=== PATIENT | female | born 1970 | race Caucasian/White ===

== ENCOUNTER 2024-07-10 14:10 | Emergency (ER) | payer OTHER, SELFPAY ==
[2024-07-10] VITALS (7 sets, daily range): BP systolic 140–165; BP diastolic 82–95; PULSE 77–91; RESP 16–21; TEMP 36.7; O2SAT 95–99; BMI 23.5
--- NOTE | 2024-07-10 14:10 | ECG_ITS ---
APPROVED REPORT Exam: Resting ECG HR:98 bpm ECG Measurements Heart Rate 98 AXES SC 171 P 59 QRSd 85 QRS 32 QT 376 T 41 QTc 431 Conclusion SINUS RHYTHM NONSPECIFIC T-WAVE ABNORMALITY BORDERLINE ECG Electronically signed by : NESHA MARSH, 07/13/2024 13:20:23
[2024-07-10 18:09] LABS: Basophils % 0.5 % (0.1-2.0); Eosinophils # 0.1 Kmm3 (0.0-0.4); Eosinophils % 0.9 % (0.1-12.0); Immature Granulocytes # 0.01 10^3uL; Immature Granulocytes % 0.2 %; Lymphocytes # 2.7 K/mm3 (0.7-4.5); Lymphocytes % 48.9 % (10-50); Mean Corpuscular HGB Conc 34.6 g/dL (31.8-35.4); Mean Corpuscular Hemoglobin 30.5 pg (27.0-31.2); Mean Corpuscular Volume 88.2 fl (81-99); Mean Platelet Volume 11.3 fl (7.4-10.4); Monocytes # 0.3 K/mm3 (0.1-1.0); Monocytes % 4.8 % (1.7-9.3); Neutrophils # 2.5 K/mm3 (1.8-7.8); Neutrophils % 44.7 % (37.0-80.0); Nucleated Red Blood Cells # 0 10^3/uL; Nucleated Red Blood Cells % 0 %; Platelet Count 164 K/mm3 (142-424); Red Blood Count 6.55 M/mm3 (4.20-5.40); Red Cell Distribution Width 12.9 % (11.5-17.5); Red Cell Distribution Width-SD 40.8 fL; White Blood Count 5.6 K/mm3 (4.8-10.8)
--- NOTE | 2024-07-10 18:09 | ED_ITS ---
Discharge Plan Disposition Patient Disposition: Home, Self-Care Referrals Follow up/Referrals: Provider,Referral, [Primary Care Provider, Medical] - See instructions Clinical Impressions Clinical Impression: Nausea Instructions Patient Instructions: DI for Diarrhea and Traveler's Diarrhea -- Adult, DI for Diarrhea and Traveler's Diarrhea -- Child, DI for Nausea -- Adult, DI for Nausea -- Child Print Language Print Language: Swedish Discharge ED Provider: Fer Calvillo General Adult HPI <OPHELIA Guajardo - Last Filed: 07/10/24 22:26> General Chief complaint: Nausea/Vomiting/Diarrhea Stated complaint: nausea/diarrhea Time Seen by Provider: 07/10/24 14:45 Mode of Arrival: EMS Source of Information: Patient Description of Symptoms (Recalled from ER Triage Doc. by RN): patient states she was riding in the car today and became extremly nauseated. she reports was at 2 days ago for stroke liek symptoms right facial droop the mri was negative, she reports she has still been having intermittemnt headaches and is having a hard time getting words out History of Present Illness HPI narrative: Patient presents for evaluation of nausea and dizziness. Patient reports that she was riding in a car and began feeling dizzy and nauseated. She feels generally unwell. Complicating factor is patient woke up 4 days ago with right lower facial droop. That was preceded by a day long headache. Patient does not routinely get headaches. She ultimately went to the [facility] where she had a full stroke workup that was essentially negative and was discharged home with outpatient follow-up with neurology. That has not occurred at this point yet. Patient denies any change in perception no visual disturbances no focal neurologic deficits. She was the passenger in a car driven by her son. Currently she denies chest pain shortness of breath fever chills hemoptysis hematochezia melena vomiting or diarrhea. Related Data Allergies Allergy/AdvReac Type Severity Reaction Status Date / Time No Known Allergies Allergy Verified 07/10/24 14:27 PFSH <OPHELIA Guajardo - Last Filed: 07/10/24 22:26> PFS Disclaimer: The information contained in this section may have been updated after the patient was seen, as this information can be updated by other users. Social History (Updated 05/28/25 @ 22:26 by OPHELIA Guajardo) Smoking Status: Never smoker alcohol intake: never current occupational status: unemployed Travel in the last 8 weeks?: None Have you lived/traveled outside US in past 30 days?: No Contact w/someone who lives/traveled outside US past 30 days?: No Exposure to someone with infectious disease in past 14 days?: No Do you have a fever (greater than 100.4 F or 38 C)?: No Have you tested positive for COVID-19?: No Exposed to someone with COVID-19 in past 14 days?: No Do you have a sore throat?: No Do you have a cough?: No Do you have any weakness?: No Do you have any diarrhea?: No Are you experiencing any unusual bleeding?: No Do you have any muscle aches/pain?: No Do you have any abdominal pain?: No Are you experiencing loss of taste or smell?: No <OPHELIA Guajardo - Last Filed: 07/10/24 22:26> ROS Obtained: Yes Systems reviewed as appropriate & no additional complaints except as documented Physical Exam <OPHELIA Guajardo - Last Filed: 07/10/24 22:26> General General appearance: alert and in no apparent distress Respiratory Respiratory exam: Present normal lung sounds bilaterally Cardiovascular Cardiovascular exam: Present regular rate Neurological Exam Neurological exam: Present alert and oriented X3 Medical Decision Making <OPHELIA Guajardo - Last Filed: 07/10/24 22:26> Medical Records Medical records reviewed: Yes I reviewed the patient's medical records. Screening: Per USPSTF and CDC recommendations, given the prevalence of disease in our region, it is our hospital?s policy to screen for HIV and viral Hepatitis for all patients aged 18 and over and those with ongoing risk factors. Akbar Inquiry Pt receiving controlled substance: No Vital Signs: 07/10/24 14:25 07/10/24 14:45 07/10/24 15:00 Temperature 98.1 F Temperature Source Oral Pulse Rate 90 84 Pulse Rate [Right Radial] 89 Respiratory Rate 18 16 Blood Pressure 153/86 H 140/82 Blood Pressure [Right Arm] 159/87 H Blood Pressure Mean [Right Arm] 111 Blood Pressure Source Blood Pressure Source [Right Arm] Automatic Cuff Blood Pressure Position Blood Pressure Position [Right Arm] Supine 02 Sat by Pulse Oximetry 97 95 96 Oxygen Delivery Method Room Air Room Air Room Air 07/10/24 15:30 07/10/24 16:00 07/10/24 16:30 Temperature Temperature Source Pulse Rate 87 83 91 H Pulse Rate [Right Radial] Respiratory Rate 16 16 21 Blood Pressure 164/95 H 157/90 H 146/88 H Blood Pressure [Right Arm] Blood Pressure Mean [Right Arm] Blood Pressure Source Blood Pressure Source [Right Arm] Blood Pressure Position Blood Pressure Position [Right Arm] 02 Sat by Pulse Oximetry 99 98 97 Oxygen Delivery Method Room Air Room Air Room Air 07/10/24 19:38 Temperature 98.1 F Temperature Source Oral Pulse Rate 77 Pulse Rate [Right Radial] Respiratory Rate 16 Blood Pressure 165/89 H Blood Pressure [Right Arm] Blood Pressure Mean [Right Arm] Blood Pressure Source Automatic Cuff Blood Pressure Source [Right Arm] Blood Pressure Position Supine Blood Pressure Position [Right Arm] 02 Sat by Pulse Oximetry Oxygen Delivery Method Room Air Lab Data Lab results reviewed: Yes I reviewed the patient's lab results. Lab Results 07/10/24 14:26: WBC 5.6, RBC 6.55 H, Hgb 14.1, Hct 57.8 H, MCV 88.2, MCH 30.5, MCHC 34.6, RDW 12.9, Plt Count 164, MPV 11.3 H, Neut % (Auto) 44.7, Lymph % (Auto) 48.9, [place] % (Auto) 4.8, Eos % (Auto) 0.9, Baso % (Auto) 0.5, Neut # (Auto) 2.5, Lymph # (Auto) 2.7, [place] # (Auto) 0.3, Eos # (Auto) 0.1, Baso # (Auto) 0.0, Sodium 137, Potassium 4.0, Chloride 102, Carbon Dioxide 27, Anion Gap 12.0, BUN 13, Creatinine 0.50 L, Estimated Creat Clear 140, Estimated GFR 129, Est GFR ( Amer) 156, Glucose 175 H, Calcium 9.5, Magnesium 1.8, Total Bilirubin 0.4, AST 39 H, ALT 49, Alkaline Phosphatase 90, Total Protein 7.7, Albumin 5.0, Globulin 2.7, Albumin/Globulin Ratio 1.9 H, HCV Ab SYMONE w/Rflx PCR Qn Negative, HIV Ag/Ab Combo Qual Negative 07/10/24 14:26 07/10/24 14:26 Orders (Tests/Meds): ORDERS Category Date Time Status Complete Blood Count Auto Diff Stat Lab 07/10/24 14:26 Completed Comprehensive Metabolic Panel Stat Lab 07/10/24 14:26 Completed HIV Combo Stat Lab 07/10/24 14:26 Completed Hepatitis C Ab Qual. W/ RFX Stat Lab 07/10/24 14:26 Completed Magnesium Stat Lab 07/10/24 14:26 Completed Medical Decision Narrative: In summary patient is a 53-year-old female who presents to the emergency department for evaluation of nausea and dizziness. Patient is hemodynamically stable the blood pressure 159/87 pulse 89 respiratory rate 18 temperature is 90.1 normal sinus rhythm on bedside monitor upon arrival, afebrile. Physical exam is remarkable for a well-nourished well-developed 53-year-old female who is otherwise no acute distress. Pupils equal round reactive to light without icterus, no nuchal rigidity and full range of motion of her C-spine without tenderness. Patient does have right lower facial droop but cranial nerves II through XII are intact grossly to exam. Lowndes Coma Score is 15. Oropharynx is patent and mucosa is pink and moist. Breath sounds clinical bilaterally to the bases without adventitious sounds cardiovascular is S1-S2 regular rate and rhythm without murmurs gallops rubs or thrills. Neurologic patient moves all 4 extremities and is neurovascularly intact distally in all 4 extremities and has no focal neurologic deficits.. Differential diagnosis includes motion sickness versus vestibular disorder versus electrolyte abnormality etc. Initial workup will be conducted with hematologic labs.. Initial interventions include fluid bolus and meclizine. I was able to review the patient's chart via the [employer] link portal and she had a full neurologic workup with CT CTA and MRI that did not reveal any acute large vessel occlusion or restricted diffusion. Her laboratory results were normal. They did not however do any inflammatory markers or Monospot or Bakari-Ferrer panel during her stay. Initial workup reviewed by me and her hematologic labs today are nonactionable. Upon repeat evaluation patient had complete resolution of her symptoms after crystalloid bolus and meclizine. Given this patient is appropriate for discharge with a prescription for meclizine sent strongly encouraged to follow-up aggressively for an outpatient neurologic evaluation for possible Ponce's palsy or strokelike symptoms. Patient advised that should she have any persistent new or worsening signs or symptoms to return to the ER as needed. Patient verbalized understanding and agreement. <Fer Calvillo MD - Last Filed: 07/19/24 23:15> Vital Signs: 07/10/24 14:25 07/10/24 14:45 07/10/24 15:00 Temperature 98.1 F Temperature Source Oral Pulse Rate 90 84 Pulse Rate [Right Radial] 89 Respiratory Rate 18 16 Blood Pressure 153/86 H 140/82 Blood Pressure [Right Arm] 159/87 H Blood Pressure Mean [Right Arm] 111 Blood Pressure Source Blood Pressure Source [Right Arm] Automatic Cuff Blood Pressure Position Blood Pressure Position [Right Arm] Supine 02 Sat by Pulse Oximetry 97 95 96 Oxygen Delivery Method Room Air Room Air Room Air 07/10/24 15:30 07/10/24 16:00 07/10/24 16:30 Temperature Temperature Source Pulse Rate 87 83 91 H Pulse Rate [Right Radial] Respiratory Rate 16 16 21 Blood Pressure 164/95 H 157/90 H 146/88 H Blood Pressure [Right Arm] Blood Pressure Mean [Right Arm] Blood Pressure Source Blood Pressure Source [Right Arm] Blood Pressure Position Blood Pressure Position [Right Arm] 02 Sat by Pulse Oximetry 99 98 97 Oxygen Delivery Method Room Air Room Air Room Air 07/10/24 19:38 Temperature 98.1 F Temperature Source Oral Pulse Rate 77 Pulse Rate [Right Radial] Respiratory Rate 16 Blood Pressure 165/89 H Blood Pressure [Right Arm] Blood Pressure Mean [Right Arm] Blood Pressure Source Automatic Cuff Blood Pressure Source [Right Arm] Blood Pressure Position Supine Blood Pressure Position [Right Arm] 02 Sat by Pulse Oximetry Oxygen Delivery Method Room Air Lab Data Lab Results 07/10/24 14:26: WBC 5.6, RBC 6.55 H, Hgb 14.1, Hct 57.8 H, MCV 88.2, MCH 30.5, MCHC 34.6, RDW 12.9, Plt Count 164, MPV 11.3 H, Neut % (Auto) 44.7, Lymph % (Auto) 48.9, [place] % (Auto) 4.8, Eos % (Auto) 0.9, Baso % (Auto) 0.5, Neut # (Auto) 2.5, Lymph # (Auto) 2.7, [place] # (Auto) 0.3, Eos # (Auto) 0.1, Baso # (Auto) 0.0, Sodium 137, Potassium 4.0, Chloride 102, Carbon Dioxide 27, Anion Gap 12.0, BUN 13, Creatinine 0.50 L, Estimated Creat Clear 140, Estimated GFR 129, Est GFR ( Amer) 156, Glucose 175 H, Calcium 9.5, Magnesium 1.8, Total Bilirubin 0.4, AST 39 H, ALT 49, Alkaline Phosphatase 90, Total Protein 7.7, Albumin 5.0, Globulin 2.7, Albumin/Globulin Ratio 1.9 H, HCV Ab SYMONE w/Rflx PCR Qn Negative, HIV Ag/Ab Combo Qual Negative Orders (Tests/Meds): ORDERS Category Date Time Status Complete Blood Count Auto Diff Stat Lab 07/10/24 14:26 Completed Comprehensive Metabolic Panel Stat Lab 07/10/24 14:26 Completed HIV Combo Stat Lab 07/10/24 14:26 Completed Hepatitis C Ab Qual. W/ RFX Stat Lab 07/10/24 14:26 Completed Magnesium Stat Lab 07/10/24 14:26 Completed Medical Decision Narrative: In summary patient is a 53-year-old female who presents to the emergency department for evaluation of nausea and dizziness. Patient is hemodynamically stable the blood pressure 159/87 pulse 89 respiratory rate 18 temperature is 90.1 normal sinus rhythm on bedside monitor upon arrival, afebrile. Physical exam is remarkable for a well-nourished well-developed 53-year-old female who is otherwise no acute distress. Pupils equal round reactive to light without icterus, no nuchal rigidity and full range of motion of her C-spine without tenderness. Patient does have right lower facial droop but cranial nerves II through XII are intact grossly to exam. Lowndes Coma Score is 15. Oropharynx is patent and mucosa is pink and moist. Breath sounds clinical bilaterally to the bases without adventitious sounds cardiovascular is S1-S2 regular rate and rhythm without murmurs gallops rubs or thrills. Neurologic patient moves all 4 extremities and is neurovascularly intact distally in all 4 extremities and has no focal neurologic deficits.. Differential diagnosis includes motion sickness versus vestibular disorder versus electrolyte abnormality etc. Initial workup will be conducted with hematologic labs.. Initial interventions include fluid bolus and meclizine. I was able to review the patient's chart via the [employer] portal and she had a full neurologic workup with CT CTA and MRI that did not reveal any acute large vessel occlusion or restricted diffusion. Her laboratory results were normal. They did not however do any inflammatory markers or Monospot or Bakari-Ferrer panel during her stay. Initial workup reviewed by me and her hematologic labs today are nonactionable. Upon repeat evaluation patient had complete resolution of her symptoms after crystalloid bolus and meclizine. Given this patient is appropriate for discharge with a prescription for meclizine sent strongly encouraged to follow-up aggressively for an outpatient neurologic evaluation for possible Ponce's palsy or strokelike symptoms. Patient advised that should she have any persistent new or worsening signs or symptoms to return to the ER as needed. Patient verbalized understanding and agreement. I was consulted by the PIERCE, and we discussed the complexity of the problems being addressed. I approved the treatment and management plan for this patient's care in the Emergency Department, thus performing a substantive portion of the medical decision making. Fer Calvillo MD Critical Care <OPHELIA Guajardo - Last Filed: 07/10/24 22:26> Critical Care Time Critical Care Time: No
[2024-07-10 19:05] LABS: Hematocrit 57.8 % (37.0-47.0)
[2024-07-10 19:16] LABS: Blood Urea Nitrogen 13 mg/dl (7-17); Carbon Dioxide 27 mmol/L (22.0-30.0); Chloride 102 mmol/L (98-107); Creatinine Clearance Estimated 140 mL/min (50-200); Estimated Glomerular Filt Rate 129 ml/min (>60); GFR (African American) 156 ML/MIN (>60); Glucose 175 mg/dl (74-100); Sodium 137 mmol/L (136-145)
[2024-07-10 19:17] LABS: Alanine Aminotransferase 49 U/L (12-78); Albumin/Globulin Ratio 1.9 (1.1-1.8); Alkaline Phosphatase 90 U/L (38-126); Aspartate Amino Transferase 39 U/L (14-36); Bilirubin,Total 0.4 mg/dl (0.2-1.3); Calcium 9.5 mg/dl (8.4-10.2); Globulin 2.7 g/dL (1.3-3.2); Magnesium 1.8 mg/dl (1.6-2.3); Total Protein,Serum 7.7 g/dl (6.3-8.2)
[2024-07-10 20:28] LABS: HIV Combo NEGATIVE (Negative); Hepatitis C Ab Qual. W/ RFX NEGATIVE (Negative)
[2024-07-10 22:07] LABS: Hemoglobin 14.1 g/dL (12.2-16.2)
== END 2024-07-10 16:18 | disposition home or self-care (01) ==
PROVIDERS: Emergency Provider Emergency Medicine
DX: R11.0 Nausea (principal); R51.9 Headache, unspecified; Z11.59 Encounter for screening for other viral diseases; Z11.4 Encounter for screening for human immunodeficiency virus [HIV]
CPT/HCPCS: 80053; 83735; 85025; 86803; 87389; 93005; 99283

== ENCOUNTER 2024-12-29 11:41 | Outpatient (CLI) | payer OTHER, SELFPAY | END 2024-12-29 23:59 | disposition home or self-care (01) | LOC: LAB.DROPOF 12-30 10:02 | PROVIDERS: Visit Provider Student in an Organized Health Care Education/Training Program | DX: R10.9 Unspecified abdominal pain (principal) | CPT/HCPCS: 87086 ==

== ENCOUNTER 2025-01-12 08:00 | Outpatient (CLI) | payer OTHER, SELFPAY ==
--- OUTSIDE RECORDS SUMMARY | 2025-01-14 08:03 | XMS_ITS | Clinical Summary ---
Author Organization Healthcare Address [address] [place] [address] Care Team Providers Care Human Resource Internship Name Role Phone Pcp, No Primary Care Provider Unavailabl e Allergies Active Allergy Reactions Criticality Noted Date Comments Dexamethasone Hives,Palpitations Medium 06/21/2023 Lisinopril Cough Low 06/21/2023 Active Problems Problem Noted Date Diagnosed Date Cerebrovascular accident (CVA) 07/08/2024 Suspected cerebrovascular accident (CVA) 025 Social History Tobacco Use Types Packs/Day Years Used Date Smoking Tobacco: Never Smokeless Tobacco: Never Tobacco Cessation:Counseling Given: Not Answered Comments Unknown Sex and Gender Information Value Date Recorded Sex Assigned at Not on file Legal Sex Female 8:20 AM EDT Gender Identity Not on file Sexual Orientation Not on file Last Filed Vital Signs Vital Sign Reading Time Taken Comments Blood Pressure 124/86 07/08/2024 11:05 AM EDT Pulse 79 07/08/2024 11:05 AM EDT Temperature 36.4 C (97.6 F) 07/08/2024 11:05 AM EDT Respiratory Rate 12 07/08/2024 11:0 5 AM EDT Oxygen Saturation 95% 07/08/2024 11: 05 AM EDT Inhaled Oxygen Concentration - - Weight 62.5 kg (137 lb 12.6 oz) 07/07/2024 3:16 PM EDT Height - - Body Mass Index - - Plan of Treatment Health Maintenance Due Date Last Done Comments [facility]-Depression Screening 1970 [facility]-Infant/Child/Adol SDOH Screenings 1970 Diabetes: Dental Exam 1980 [facility]- SDOH Screenings 1988 [facility]-Adult SDOH Screenings 1988 [facility]-DTaP,Tdap,and Td Vaccine s (1 - Tdap) 1989 [facility]-Hepatitis B Vaccines (1 of 3 - 19+ 3-dose series) 1989 [facility]-Pneumococcal Vaccine: 50 + Years (1 of 2 - PCV) 1989 [facility]-Pap Smear 11/16/1991 [facility]-Cervical Cancer Screening 2000 [facility]-HPV/Cotest 2000 CT Colonography 11/16/2015 Colonoscopy 11/16/2015 FIT-DNA 11/16/2015 FIT 11/16/2015 FOBT 11/16/2015 Sigmoidoscopy 11/16/2015 [facility]-Colorectal Cancer Screening 11/16/2015 [facility]-Breast Cancer Screening 2020 [facility]-Zoster Vaccines (1 of 2) 2020 [facility]-Diabetes: Hemoglobin A1C 10/06/2024, 07/02/2024 [id number] Vaccine ( season) 2024 [facility]-Influenza Vaccine (#1) 2024 [facility]-HIV Screening Completed 07/07/2024 [facility]-Hepatitis C Screening Completed 07/07/2024 HPV Vaccines Aged Out No longer eligi ble based on patient's age to complete this topic [facility]-HIB Vaccines Aged Out No longer e ligible based on patient's age to complete this topic [facility]-Hepatitis A Vaccines Aged Out No longer eligible based on patient's age to complete this topic [facility]-IPV Vaccines Aged Out No longer e ligible based on patient's age to complete this topic [facility]-Rotavirus Vaccines Aged Out No lo nger eligible based on patient's age to complete this topic Procedures Procedure Name Priority Date/Time Associated Diagnosis Comments HEPATITIS C ANTIBODY - ED W/REFLEX TO HCV QUANT PCR STAT 07/07/2024 9:59 AM EDT ED HIV 1/2 ANTIBODY/ANTIGEN SCREEN WITH REFLEX TO HIV I/II DIFFERENTIATION STAT 07/07/2024 9:59 AM EDT HEMOGLOBIN A1C Add-On 07/07/2024 9:59 AM EDT from Last 3 Months or Most Recently Relevant to Health Maintenance Results * ED HIV 1/2 Antibody/Antigen Screen w/Reflex to HIV 1/2 Differentiation (07/07/2024 9:59 AM EDT) Pathologist [facility] HIV 1 & 2 Antibody/Antigen Screen Non Reactive Non Reactive 07/07/2024 12:01 PM EDT [facility] Comment:Screening for HIV 1 & 2 antibodies, and P24 antigen is NONREACTIVE. No confirmatory testing is required. Blood Venous blood specimen / Unknown Venipuncture / Unknown 07/07/2024 9:59 AM EDT 07/07/2024 11:20 AM EDT Rossana Freedman MD LAB BLOOD ORDERABLES Final Resu lt [facility] [address] [place] [address] * Hepatitis C Antibody - ED (07/07/2024 9:59 AM EDT) [facility] Hepatitis C Antibody Negative Negative 07/07/2024 12:01 PM EDT [facility] Blood Venous blood specimen / Unknown Venipuncture / Unknown 07/07/2024 9:59 AM EDT 07/07/2024 11:20 AM EDT Rossana Freedman MD LAB BLOOD ORDERABLES Final Resu lt [facility] [address] [place] [address] * (ABNORMAL) Hemoglobin A1c (07/07/2024 9:59 AM EDT) [facility] Hemoglobin A1c 7.3(H) <5.7 % 07/07/2024 8:06 PM EDT [facility] Blood Venous blood specimen / Unknown Venipuncture / Unknown 07/07/2024 9:59 AM EDT 07/07/2024 10:02 AM EDT Narrative [facility] - 07/07/2024 8:06 PM EDT HA1C Interpretive Data: Diagnosis of Diabetes: Diabetic > or = 6.5% Pre-diabetic 5.7 to 6.4% Non-diabetic < or = 5.6% Glycemic Targets for Type I and Type II Diabetics: Non- Adults <7.0% Adults <6.0% Children and Adolescents <7.5% Source: [place] [employer]. Standards of medical care in diabetes,2017. Diabetes Care.2017:40 (suppl 1):S1-S135. [place] Mirella Lisa MD LAB BLOOD ORDERABLES Final Result [facility] [address] [place] [address] from Last 3 Months or Most Recently Relevant to Health Maintenance Insurance Advance Directives * Full Code (Latest Code Status on File) Date Activated Date Inactivated Comments 07/07/2024 11:35 AM 07/08/2024 5:16 PM Assume Full Question Answer Comments I have reviewed the capacity from the link above and, if needed, have updated to appropriate status: No Care Teams Human Resource Internship Relationship Specialty Start Date End Date Pcp, No [address] [place] [address] PCP - General Family Medicine 07/07/24
== END 2025-01-12 23:59 ==
LOC: LAB.DROPOF 01-14 08:01
PROVIDERS: PCP Pediatrics; Visit Provider Student in an Organized Health Care Education/Training Program
DX: N39.0 Urinary tract infection, site not specified (principal)
CPT/HCPCS: 87086